=== PATIENT | male | born 1995 | race Caucasian/White ===

== ENCOUNTER 2024-07-29 02:53 | Emergency (ER) | payer MEDICAID, SELFPAY ==
[2024-07-29 02:55] VITALS: PULSE 106; RESP 20; O2SAT 99; BMI 26.5
[2024-07-29 02:59] VITALS: BP 123/89; PULSE 96; RESP 18; TEMP 36.5; O2SAT 97
[2024-07-29] MEDS: DIAZEPAM INJ 5 MG/ML VIAL 2 ML 10 MG IM (04:26)
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
[2024-07-29 05:36] VITALS: PULSE 87; RESP 19; TEMP 36.6; O2SAT 99
== END 2024-07-29 05:36 | disposition home or self-care (01) ==
PROVIDERS: Emergency Provider Emergency Medicine
DX: T54.2X1A Toxic effect of corrosive acids and acid-like substances, accidental (unintentional), initial encounter (principal); R20.0 Anesthesia of skin; M62.838 Other muscle spasm; R00.0 Tachycardia, unspecified
CPT/HCPCS: 93005; 96372; 99283; J3360

== ENCOUNTER 2024-11-19 13:21 | Emergency (ER) | payer MEDICAID, SELFPAY ==
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
[2024-11-19 13:47] VITALS: PULSE 98; RESP 22; O2SAT 98; BMI 32.3
[2024-11-19 13:53] VITALS: BP 135/95; PULSE 100; RESP 20; TEMP 36.8; O2SAT 95
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
[2024-11-19] MEDS: fentaNYL CIT INJ 50 mCg/ML AMP 2ML IVP (14:11)
[2024-11-19] MEDS: DIPHTH,PERTUSS(ACELL),TET VAC 0.5 ML SYR- ADULT IMi (14:12)
[2024-11-19] MEDS: ceFAZolin/D5W 1 GM IVPB 1 GM/50 ML BAG IV (14:13)
[2024-11-19 15:05] VITALS: BP 139/92; PULSE 93; RESP 19; O2SAT 96
[2024-11-19] MEDS: MORPHINE SULF INJ 10 MG/ML VIAL 4 MG IVP (15:09)
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
[2024-11-19 17:38] VITALS: BP 136/88; PULSE 76; RESP 19; TEMP 36.8; O2SAT 97
[2024-11-19] MEDS: TETRACAINE PF OP SOL 0.5% 4 ML DRPETTE 1 DROP LEFT EYE (18:34)
[2024-11-19] MEDS: FLUORESCEIN SOD 1 MG STRP LEFT EYE (18:34)
--- NOTE | 2024-11-19 18:35 | PC.NURSE ---
ALL LACERATIONS IRRIGATED WITH NORMAL SALINE AND DRIED PER MD ORDER BEFORE DISCHARGE. MD HAS ORDERED NEOSPORIN FOR LEFT GREAT TOE AND RIGHT GREAT TOE. PATIENT READY FOR DISCHARGE ALL RESULTS NEGATIVE FOR FRACTURE. PATIENT EXPLAINED TO FOLLOW UP WITH EENT AND OPHTHALMOLOGY FOR BLURRY VISION TO LEFT EYE AND FACIAL FRACTURE IN LEFT EYE,
[2024-11-19] MEDS: BACITRACIN OINT 1 GM PACKET TOP (18:47)
[2024-11-19 19:08] VITALS: BP 139/90; PULSE 94; RESP 19; TEMP 36.9; O2SAT 96
== END 2024-11-19 19:09 | disposition home or self-care (01) ==
PROVIDERS: Emergency Provider Emergency Medicine; PCP Family Medicine
DX: S02.832A Fracture of medial orbital wall, left side, initial encounter for closed fracture (principal); S91.112A Laceration without foreign body of left great toe without damage to nail, initial encounter; S80.212A Abrasion, left knee, initial encounter; S80.211A Abrasion, right knee, initial encounter; S19.9XXA Unspecified injury of neck, initial encounter; S29.9XXA Unspecified injury of thorax, initial encounter; S09.90XA Unspecified injury of head, initial encounter; Y04.0XXA Assault by unarmed brawl or fight, initial encounter; Z23 Encounter for immunization
CPT/HCPCS: 12001; 70450; 70486; 72125; 72128; 73562; 73630; 90471; 90715; 96365; 96375; 99283; J0689; J2270; J3010; A9270

== ENCOUNTER 2025-03-07 02:44 | Emergency (ER) | payer MEDICAID, SELFPAY ==
[2025-03-07 02:49] VITALS: PULSE 76; RESP 20; O2SAT 100; BMI 30.7
--- NOTE | 2025-03-07 02:53 | EKG_ITS ---
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
[2025-03-07 03:00] VITALS: BP 130/89; PULSE 77; RESP 19; TEMP 36.3; O2SAT 96
--- NOTE | 2025-03-07 03:14 | XR_ITS ---
EXAMINATION: PA chest single view TECHNIQUE: Upright PA chest single view Date and time: March 07, 2025, 0314 hours, comparison 01/24/2024 INDICATIONS: Chest pain shortness of breath today. FINDINGS: Normal heart size Lungs are clear. The osseous structures are intact IMPRESSION: No active disease
[2025-03-07 03:33] LABS: Lactate (Lactic Acid) 1.0 mMol/L (0.4-2.0)
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
[2025-03-07 03:41] LABS: Basophils # (Auto) 0.0 Thou/mm3 (0.0-0.2); Basophils % (Auto) 0 % (0-2.5); Eosinophils # (Auto) 0.4 Thou/mm3 (0.0-0.5); Eosinophils % (Auto) 5 % (0-10); Hematocrit 42.6 % (41.0-53.0); Hemoglobin 14.4 g/dL (13.5-16.0); Immature Granulocytes Auto 0.02 Thou/mm3 (0.00-0.00); Lymphocytes # (Auto) 2.4 Thou/mm3 (1.0-4.8); Lymphocytes % (Auto) 28 % (10-50); Mean Corpuscular HGB Conc 33.8 g/dl (31.0-37.0); Mean Corpuscular Hemoglobin 29.0 pg (25.0-35.0); Mean Corpuscular Volume 86 fL (80-100); Monocytes # (Auto) 0.8 Thou/mm3 (0.0-0.8); Monocytes % (Auto) 9 % (0-12); Neutrophils # (Auto) 4.8 Thou/mm3 (1.8-7.7); Neutrophils % (Auto) 58 % (37-80); Nucleated Red Blood Cell # 0.00 Thou/mm3 (0.00-0.00); Nucleated Red Blood Cell % 0 /100 WBC (0); Platelet Count 253 Thou/mm3 (140-440); RDW Standard Deviation 37.9 fL (35.1-43.9); Red Blood Count 4.96 Miln/mm3 (4.50-5.90); White Blood Count 8.4 Thou/mm3 (3.8-10.6)
[2025-03-07] MEDS: DIAZEPAM 5 MG TABLET 10 MG PO (03:51)
[2025-03-07 03:59] LABS: D-Dimer < 250 ng/mL (<600)
[2025-03-07 04:05] LABS: Alanine Aminotransferase 31 U/L (10-49); Albumin, Serum 4.6 gm/dL (3.5-5.0); Albumin/Globulin Ratio 2.6 (1.2-2.2); Alcohol, Blood Medical < 3.0 mg/dL (0-10.0); Alkaline Phosphatase 71 U/L (46-116); Anion Gap 6 (7-16); Aspartate Amino Transferase 25 U/L (0-34); BUN/Creatinine Ratio 10 Ratio (12-20); Bilirubin,Total 0.3 mg/dL (0.3-1.2); Blood Urea Nitrogen 8 mg/dL (9-23); Calcium 9.5 mg/dL (8.3-10.6); Calcium (Corrected) 9.5 mg/dL (8.5-10.1); Carbon Dioxide 30.7 mMol/L (20.0-31.0); Chloride 107 mMol/L (98-107); Creatinine (Component) 0.8 mg/dL (0.6-1.3); Estimated Creatinine Clearance 137.7 mL/min (>60); Globulin 1.8 gm/dL (2.3-3.5); Glucose 108 mg/dL (74-106); Osmolality,Calculated 286 (275-295); Potassium 4.7 mMol/L (3.4-5.1); Sodium 144 mMol/L (136-145); Total Protein 6.4 gm/dL (5.7-8.2); Troponin I < 0.002 ng/mL (0.0-0.045); eGFR > 60 See Note
--- NOTE | 2025-03-07 04:27 | PRELIM_ITS ---
Radiograph of the chest (single view). March 07, 2025 0314 hours Clinical history: CP/SOB Comparison: None available at the time of this report. Findings: The heart, mediastinum and pulmonary steph are unremarkable. The lungs are clear. There is no focal consolidation or pleural effusion. The bony thorax is unremarkable. No pneumothorax. Impression: No focal consolidation or pleural effusion. Report Electronically Signed By: Davey Lal 03/07/2025 4:26:55 AM [EST]
== END 2025-03-07 04:36 | disposition home or self-care (01) ==
PROVIDERS: Physician Assistant; Emergency Provider Emergency Medicine; PCP Family Medicine
DX: R07.89 Other chest pain (principal); F41.9 Anxiety disorder, unspecified
CPT/HCPCS: 36415; 71045; 80053; 80307; 80320; 83605; 84484; 85025; 85379; 93005; 99283; A9270; G0480